=== PATIENT | male | born 1940 | race Caucasian/White ===

== ENCOUNTER 2017-10-30 10:00 | Outpatient (CLI) | payer MEDICARE, MEDICAID ==
[~2017-10-30 10:00] MED LIST: ASPI-41 PO; CALC-1197 PO; DOCU100C40 PO; GLIM4TAB79 PO; INSU100I13 SQ; LANTUS SQ; LINA5TAB4 PO; LOP25T PO; NOR5T PO; NORCO10T PO; PRAV20TA60 PO; PRIM50TA27 PO
[2017-10-30] MEDS ORDERED: DAPA10TA PO (11:16)
[2017-10-30] MEDS ORDERED: METO25TA6 PO (11:16)
[2017-10-30] MEDS ORDERED: LOSA50TA3 PO (11:16)
[2017-10-30] MEDS ORDERED: ASPI-1265 PO (11:16)
[2017-10-30] MEDS ORDERED: PRAV80TA3 PO (11:16)
[2017-10-30] MEDS ORDERED: AMLO10TA2 PO (11:16)
[2017-10-30] MEDS ORDERED: INSU100I29 SQ (11:16)
[2017-10-30 12:22] LABS: BASOPHILS % (AUTO) 0.4 % (0-1); EOSINOPHILS # (AUTO) 0.4 X10'3 (0-0.9); EOSINOPHILS % (AUTO) 5.4 % (0-6); LYMPHOCYTES # (AUTO) 1.9 X10'3 (1.1-4.8); LYMPHOCYTES % (AUTO) 23.5 % (21-51); MEAN CORPUSCULAR HEMOGLOBIN 30.6 PG (27.0-31.0); MEAN CORPUSCULAR VOLUME 92.5 FL (78-98); MEAN PLATELET VOLUME 9.7 FL (7.4-10.4); MONOCYTES # (AUTO) 0.7 X10'3 (0-0.9); MONOCYTES % (AUTO) 8.7 % (2-12); NEUTROPHILS # (AUTO) 5.3 X10'3 (1.8-7.7); PRE OP HEMATOCRIT 38.3 % (42.0-52.0); PRE OP HEMOGLOBIN 12.7 g/dL (14.0-17.9); PRE OP PLATELET COUNT 195 X10'3 (140-440); RED BLOOD COUNT 4.14 X10'6 (4.70-6.10); RED CELL DISTRIBUTION WIDTH 15.2 % (11.5-14.5)
[2017-10-30 12:25] LABS: PRE OP PROTIME 10.5 SECONDS (9.0-12.0)
[2017-10-30 12:31] LABS: ALBUMIN 3.2 G/DL (3.4-5.0); ALBUMIN/GLOBULIN RATIO 0.9 (1.1-1.5); ALKALINE PHOSPHATASE 89 IU/L (46-116); BLOOD UREA NITROGEN 28 MG/DL (7-18); BUN/CREATININE RATIO 15.7 (5.4-32.0); CALCIUM 8.3 MG/DL (8.5-10.1); CHLORIDE 100 MMOL/L (99-107); CREATININE 1.78 MG/DL (0.60-1.10); PRE OP ALT 23 U/L (30-65); PRE OP ANION GAP 3 (8-16); PRE OP AST 14 U/L (10-37); PRE OP BILIRUB, TOTAL 0.4 MG/DL (0.0-1.0); PRE OP POTASSIUM 3.8 MMOL/L (3.4-5.1); PRE OP SODIUM 135 MMOL/L (135-145); TOTAL CARBON DIOXIDE 31.7 MMOL/L (24-32); TOTAL PROTEIN 6.9 G/DL (6.4-8.2); eGFR 37 ML/MIN
[2017-10-30 12:36] LABS: PRE OP GLUCOSE 313 MG/DL (70-104)
[2017-10-30 12:37] LABS: HEMOGLOBIN A1C 9.4 % (4.5-6.2)
== END 2017-10-30 23:59 | disposition home or self-care (01) ==
LOC: PRE-OP 10:00 → EDSTATUS 11-07 10:30
PROVIDERS: ATTEND Orthopaedic Surgery
DX: Z01.812 Encounter for preprocedural laboratory examination (principal); M17.11 Unilateral primary osteoarthritis, right knee; M25.561 Pain in right knee
CPT/HCPCS: 36415; 80053; 83036; 85025; 85610; 85730; 87070